=== PATIENT | female | born 1945 | race Caucasian/White ===

== ENCOUNTER 2022-03-27 09:22 | Outpatient (REF) | payer MEDICARE, OTHER, SELFPAY | END 2022-03-27 09:23 | disposition home or self-care (01) | LOC: HO.LNP 09:22 | PROVIDERS: Visit Provider Surgery | DX: R21 Rash and other nonspecific skin eruption (principal); R78.6 Finding of steroid agent in blood | CPT/HCPCS: 11104; 88305; 99202 ==

== ENCOUNTER → 2022-04-04 14:16 | Outpatient (BNVA) | payer MEDICARE, OTHER, SELFPAY | PROVIDERS: PCP Internal Medicine; Visit Provider Student in an Organized Health Care Education/Training Program | DX: M31.0 Hypersensitivity angiitis (principal) | CPT/HCPCS: 99202 ==

== ENCOUNTER 2022-04-05 05:59 | Outpatient (REF) | payer MEDICARE, OTHER, SELFPAY ==
[2022-04-05 06:45] LABS: MANUAL DIFF FLAG NO
[2022-04-05 07:32] LABS: Basophils Percent Auto 0.3 % (0-2); Eosinophils Percent Auto 0.2 % (0-4); Hematocrit 40.6 % (37.0-47.0); Hemoglobin 12.3 g/dl (12.0-16.0); Imm Gran Abs Auto 0.04 X10*3/uL (0.00-0.03); Imm Gran Pct Auto 0.4 % (0.0-0.4); Lymphocytes Absolute Auto 2.8 X10*3/uL (1.2-4.9); Lymphocytes Percent Auto 29.7 % (20-40); Mean Corpuscular HGB Conc 30.3 g/dl (31.0-35.0); Mean Corpuscular Hemoglobin 26.7 pg (27.0-33.0); Mean Corpuscular Volume 88.3 fL (80.0-98.0); Mean Platelet Volume 10.7 fL (9.4-12.3); Monocytes Absolute Auto 1.1 X10*3/uL (0.1-1.2); Neutrophils Absolute Auto 5.3 x10*3/uL (2.0-8.3); Neutrophils Percent Auto 57.4 % (45-73); Platelet Count 311 X10*3/uL (160-400); Red Cell Distribution Width 15.3 % (11.0-16.0); White Blood Count 9.3 X10*3/uL (4.8-10.8)
[2022-04-05 07:39] LABS: Estimated Average Glucose 114 mg/dL; Hemoglobin A1c % 5.6 %
[2022-04-05 08:08] LABS: Alanine Aminotransferase 18 U/L (0-31); Alkaline Phosphatase 121 U/L (39-117); Anion Gap 16 (12-20); Aspartate Amino Transferase 27 U/L (5-31); Bilirubin Total 0.3 mg/dL (0.0-1.0); Blood Urea Nitrogen 31 mg/dL (9-16); Calcium 10.2 mg/dL (8.4-10.2); Carbon Dioxide 22 mmol/L (22-29); Chloride 107 mmol/L (96-108); Estimated Glomerular Filt Rate > 60; Glucose Random 87 mg/dL (60-115); Potassium 4.5 mmol/L (3.3-5.1); Sodium 140 mmol/L (135-145); Total Protein 6.9 g/dL (6.5-8.0)
[2022-04-05 08:19] LABS: Erythrocyte Sedimentation Rate 23 MM/HR (0-20)
[2022-04-05 08:59] LABS: Rheumatoid Factor < 15.0 IU/mL (<15.0); Uric Acid 5.2 mg/dL (2.4-5.7)
[2022-04-06 14:26] LABS: Complement C3 113 mg/dL (83-193)
[2022-04-07 09:12] LABS: Thyroglobulin Antibodies 3 IU/mL (< or = 1); Thyroid Peroxidase Antibodies 302 IU/mL (<9)
[2022-04-09 11:37] LABS: Prot Elec - Albumin 3.7 g/dL (3.8-4.8); Prot Elec - Alpha1 0.4 g/dL (0.2-0.3); Prot Elec - Alpha2 0.9 g/dL (0.5-0.9); Prot Elec - Beta 1 0.5 g/dL (0.4-0.6); Prot Elec - Beta 2 0.4 g/dL (0.2-0.5); Prot Elec - Gamma 0.8 g/dL (0.8-1.7); Prot Elec - Total Protein 6.6 g/dL (6.1-8.1)
[2022-04-09 12:42] LABS: Cardiolipin IgG Ab <2.0 GPL-U/mL; Cardiolipin IgM Ab <2.0 MPL-U/mL
[2022-04-09 13:12] LABS: IgA 189 mg/dL (70-320); IgG 901 mg/dL (600-1540); IgM 121 mg/dL (50-300)
[2022-04-09 15:47] LABS: Cyclic Citrullinated Peptide <16 UNITS
[2022-04-10 06:53] LABS: Anti DNA DS Antibody <1 IU/mL; Anti-Centromere B Antibodies <1.0 NEG AI (<1.0 NEG); Antibody to SS-A Antigen <1.0 NEG AI (<1.0 NEG); Antibody to SS-B Antigen <1.0 NEG AI (<1.0 NEG); Myeloperoxidase Antibody <1.0 AI; Proteinase 3 PR3 Antibodies <1.0 AI; SM/Ribonucleoprotein Ab <1.0 NEG AI (<1.0 NEG); Scleroderma 70 Antibody <1.0 NEG AI (<1.0 NEG); Smith Protein <1.0 NEG AI (<1.0 NEG)
[2022-04-10 16:06] LABS: Angiotensin Converting Enzyme 24.1 U/L (9-67)
[2022-04-10 22:47] LABS: Hexagonal Phase Neutralization Negative (Negative); PTT (LAC) Screen 45 sec (<=40)
[2022-04-11 03:57] LABS: Beta-2 Glycoprotein IgA <2.0 U/mL (<20.0); Beta-2 Glycoprotein IgG <2.0 U/mL (<20.0); Beta-2 Glycoprotein IgM <2.0 U/mL (<20.0)
[2022-04-11 13:17] LABS: Anti Nuclear Antibody Pattern Nuclear, Homogeneous; Anti Nuclear Antibody Screen POSITIVE (NEGATIVE)
[2022-04-12 17:06] LABS: Cryoglobulin, Qual NONE DETECTED ((NDT))
== END 2022-04-05 06:00 | disposition home or self-care (01) ==
LOC: HO.LAB 05:59
PROVIDERS: PCP Internal Medicine; Visit Provider Student in an Organized Health Care Education/Training Program
DX: I77.6 Arteritis, unspecified (principal); R76.8 Other specified abnormal immunological findings in serum; E66.9 Obesity, unspecified; E03.9 Hypothyroidism, unspecified; E88.81 Metabolic syndrome and other insulin resistance
CPT/HCPCS: 36415; 80053; 82164; 82550; 82595; 82784; 83036; 84165; 84443; 84550; 85025; 85597; 85613; 85652; 85730; 86021; 86038; 86039; 86140; 86146; 86147; 86160; 86200; 86225; 86235; 86334; 86376; 86431; 86800

== ENCOUNTER 2022-04-06 07:23 | Outpatient (REF) | payer MEDICARE, OTHER, SELFPAY ==
[2022-04-06 07:40] LABS: Appearance Urine Clear; Color Urine Yellow; Glucose Urine UA Negative (Negative); Leukocyte Esterase Urine Small (1+) (Negative); Nitrite Urine Negative (Negative); Specific Gravity - Urine 1.015 (1.005-1.025); UMIC TRIGGER UA YES; Urine Blood Negative (Negative); Urine Ketones Negative (Negative); Urine Protein Negative (Neg-Trace)
[2022-04-06 08:00] LABS: Bacteria Urine None Seen (None Seen); Hyaline Casts Urine 0-2 /LPF (0-2); RBC Urine 0-2 /HPF (0-2); Squamous Epithelial Cell Urine 0-2 /HPF (0-2); WBC Urine 0-5 /HPF (0-5)
[2022-04-06 08:10] LABS: Creatinine Urine 32.37 mg/dL; Total Protein Urine Random < 7 mg/dL (<12)
== END 2022-04-06 07:24 | disposition home or self-care (01) ==
LOC: HO.LNP 07:23
PROVIDERS: Visit Provider Student in an Organized Health Care Education/Training Program
DX: I77.6 Arteritis, unspecified (principal)
CPT/HCPCS: 81001; 84156

== ENCOUNTER → 2022-04-16 10:02 | Outpatient (BNVA) | payer MEDICARE, OTHER, SELFPAY | PROVIDERS: PCP Internal Medicine; Visit Provider Internal Medicine | DX: M54.16 Radiculopathy, lumbar region (principal) | CPT/HCPCS: 99202 ==

== ENCOUNTER 2022-04-19 14:39 | Outpatient (REF) | payer MEDICARE, OTHER, SELFPAY ==
--- NOTE | ~2022-04-19 | US_ITS ---
EXAMINATION: US VENOUS ULTRASOUND WITH DOPPLER LOWER EXTREMITY, LEFT CLINICAL INFORMATION: Left lower extremity pain COMPARISON: None TECHNIQUE: Ultrasound of the deep veins is performed from the hip to the calf with compression sonography and color and pulse Doppler assessment. Spectral analysis with color-flow imaging is performed. FINDINGS: There is normal venous compression and respiratory variation and augmented flow. The visualized common femoral vein, superficial femoral vein, profunda femoral vein, popliteal vein, and the trifurcation region shows no evidence of deep venous thrombosis. There is no significant popliteal fossa cyst. If the patient's symptoms persist, followup ultrasound in 5 days 7 days might be of value to exclude proximal propagation from a non-visualized calf vein. US/US venous duplex LE LT IMPRESSION: No DVT demonstrated in the left lower extremity.
== END 2022-04-19 14:40 | disposition home or self-care (01) ==
LOC: HO.US 14:39
PROVIDERS: PCP Internal Medicine; Visit Provider Surgery
DX: L03.116 Cellulitis of left lower limb (principal); I77.6 Arteritis, unspecified; M79.662 Pain in left lower leg; Z79.899 Other long term (current) drug therapy; Z79.01 Long term (current) use of anticoagulants
CPT/HCPCS: 93971; 99212

== ENCOUNTER 2022-04-25 07:59 | Outpatient (RCR) | payer MEDICARE, OTHER, SELFPAY | END 2022-06-19 11:58 | disposition home or self-care (01) | LOC: HO.WCC 07:59 | PROVIDERS: PCP Internal Medicine; Visit Provider Surgery | DX: Z09 Encounter for follow-up examination after completed treatment for conditions other than malignant neoplasm (principal); L95.8 Other vasculitis limited to the skin; I48.91 Unspecified atrial fibrillation; I10 Essential (primary) hypertension; Z87.2 Personal history of diseases of the skin and subcutaneous tissue | CPT/HCPCS: 11042; 97597; 99212; 99214 ==

== ENCOUNTER → 2022-04-26 07:28 | Outpatient (BNVA) | payer MEDICARE, OTHER, SELFPAY | PROVIDERS: PCP Internal Medicine; Visit Provider Student in an Organized Health Care Education/Training Program | DX: M31.0 Hypersensitivity angiitis (principal) | CPT/HCPCS: 99212 ==

== ENCOUNTER 2022-05-16 06:57 | Outpatient (REF) | payer MEDICARE, OTHER, SELFPAY ==
[2022-05-16 08:32] LABS: Thyroid Stimulating Hormone 6.71 uIU/mL (0.32-4.0)
== END 2022-05-16 06:58 | disposition home or self-care (01) ==
LOC: HO.LAB 06:57
PROVIDERS: PCP Internal Medicine; Visit Provider Internal Medicine
DX: E03.9 Hypothyroidism, unspecified (principal)
CPT/HCPCS: 36415; 84443

== ENCOUNTER → 2022-06-07 07:29 | Outpatient (BNVA) | payer MEDICARE, OTHER, SELFPAY | PROVIDERS: PCP Internal Medicine; Visit Provider Student in an Organized Health Care Education/Training Program | DX: M31.0 Hypersensitivity angiitis (principal) | CPT/HCPCS: 99212 ==

== ENCOUNTER 2022-06-13 06:12 | Outpatient (REF) | payer MEDICARE, OTHER, SELFPAY ==
--- NOTE | ~2022-06-13 | FL_ITS ---
EXAMINATION: XR FLUOROSCOPY WITH IMAGES CLINICAL INFORMATION: Radiculopathy lumbar region. COMPARISON: None. TECHNIQUE: Fluoroscopy Supervised By: Pau Ponce Fluoroscopy Time: 0.1 minutes. Cumulative Dose: 10.5 mGy. DAP: 1.36 Gycm2. Images: 2. FINDINGS: Needle is seen about the posterior aspect of the L5-S1 disc space with limited visibility. FL/FL guidance in treatment room IMPRESSION: Intraoperative fluoroscopy for pain management procedure.
== END 2022-06-13 06:13 | disposition home or self-care (01) ==
LOC: CF 06:12
PROVIDERS: Visit Provider Internal Medicine
DX: M54.16 Radiculopathy, lumbar region (principal)
CPT/HCPCS: 62323; J1040

== ENCOUNTER 2022-08-20 05:48 | Emergency (ER) | payer MEDICARE, OTHER, SELFPAY ==
--- NOTE | ~2022-08-20 | XR_ITS ---
EXAMINATION: XR CERVICAL SPINE CLINICAL INFORMATION: Severe neck spasms COMPARISON: None TECHNIQUE: 4 views of the cervical spine were obtained. FINDINGS: No acute fracture or traumatic malalignment. There is 3 mm anterolisthesis of C3 over C4 and C4 over C5 related to hypertrophic facet arthropathy which is present throughout the cervical spine. Mild cervical kyphosis centered at C5. Near-complete obliteration of the disc spaces at C5-C6 and C6-C7. Paraspinal soft tissues unremarkable. XR/XR cervical spine 3V IMPRESSION: * No acute fracture or traumatic malalignment. * Cervical spondylosis as described.
[2022-08-20 05:55] VITALS: BP 156/68; PULSE 86; RESP 16; TEMP 36.8; O2SAT 99; BMI 37.0
--- NOTE | 2022-08-20 07:07 | ED.NECK ---
HPI - Neck Pain/Injury General Chief Complaint: Neck Pain/Injury Stated Complaint: Neck pain/No Inj Time Seen by Provider: 08/20/22 07:06 Source: patient Mode of arrival: ambulatory Limitations: no limitations History of Present Illness HPI Narrative: Patient had her hair done but when she put her head back she had severe pain and spasm complaint: neck pain Onset (ago): day(s) (3 days) [facility] Severity: severe Quality: sharp Related Data Home Medications Medication Instructions Recorded Confirmed atorvastatin 20 mg tablet 20 mg PO DAILY 03/27/22 07/16/22 calcium carbonate 600 mg-vitamin cap PO 03/27/22 07/16/22 D3 12.5 mcg (500 unit) capsule clotrimazole 1 % topical cream 1 appl topical BID 03/27/22 07/16/22 cyclosporine 0.05 % eye drops 1 drp ophthalmic (eye) Q12H 03/27/22 07/16/22 fexofenadine 180 mg tablet 180 mg PO DAILY 03/27/22 07/16/22 furosemide 20 mg tablet 20 mg PO QAM 03/27/22 07/16/22 latanoprost 0.005 % eye drops 1 drp ophthalmic (eye) DAILY 03/27/22 07/16/22 metoprolol succinate 25 mg 25 mg PO DAILY 03/27/22 07/16/22 tablet,extended release 24 hr nystatin 100,000 unit/gram topical 1 appl topical BID 03/27/22 07/16/22 powder omeprazole 20 mg capsule,delayed 20 mg PO DAILY 03/27/22 07/16/22 release potassium chloride 10 mEq 10 meq PO DAILY 03/27/22 07/16/22 capsule,extended release topiramate 25 mg tablet 25 mg PO DAILY 03/27/22 07/16/22 warfarin 1 mg tablet 3 mg PO DAILY 03/27/22 07/16/22 acetaminophen 500 mg capsule 1,000 mg PO BID 04/04/22 07/16/22 Previous Rx's Medication Instructions Recorded levothyroxine 112 mcg tablet 112 mcg PO DAILY 90 days #90 tabs 05/17/22 cyclobenzaprine 10 mg tablet 10 mg PO BID PRN muscle spasm #30 08/08/22 tabs naproxen 500 mg tablet (Naprosyn) 500 mg PO BID #8 tabs 08/20/22 Allergies Allergy/AdvReac Type Severity Reaction Status Date / Time fentanyl Allergy Severe Shortness Verified 07/16/22 13:19 of Breath lisinopril Allergy Severe Nausea, Verified 07/16/22 13:19 dizziness propafenone Allergy Severe Unknown Verified 07/16/22 13:19 clarithromycin [From Biaxin] Allergy Mild RASH/ITCH Verified 07/16/22 13:19 erythromycin base Allergy Mild RASH/ITCH Verified 07/16/22 13:19 [Erythromycin Base] hydrocodone [From Vicodin] Allergy Mild RASH/ITCH Verified 07/16/22 13:19 levofloxacin [From Levaquin] Allergy Mild DELIRIUM Verified 07/16/22 13:19 oxycodone [From Percocet] Allergy Mild RASH/ITCH Verified 07/16/22 13:19 sulfamethoxazole Allergy Mild RASH/ITCH Verified 07/16/22 13:19 [From Bactrim] trimethoprim [From Bactrim] Allergy Mild RASH/ITCH Verified 07/16/22 13:19 duloxetine [From CYMBALTA] Allergy Unknown MEMORY LOSS Verified 07/16/22 13:19 gabapentin [From NEURONTIN] Allergy Unknown N/V Verified 07/16/22 13:19 tramadol [TRAMADOL] Allergy Unknown RASH Verified 07/16/22 13:19 lyrica Allergy Unknown nausea, Uncoded 07/16/22 13:19 vomiting Review of Systems Review of Systems: Yes all other systems are reviewed and are negative Musculoskeletal: Musculoskeletal: Reports other (neck spasms) Neurologic: Denies Sensory deficit (Neuro) PMFSH Past Medical History Medical History Atrial fibrillation Breast cancer Dyslipidemia Hypothyroidism Rosacea Vasculitis Surgical History History of cardiac radiofrequency ablation (RFA) History of lumpectomy of right breast History of surgery on lower extremity (05/15/21) Family History Family History Sister Colon cancer Sister Colon cancer Maternal Grandmother Lung cancer Social History Social History Household Members: Spouse Housing: House Alcohol intake: current Alcohol intake frequency: holidays/special occasions only Alcohol type: other Patient Tobacco Use Status: Never used Tobacco Smoked in Last 30 Days: No e-Cigarette/Vaping Use: Never Used Second Hand Smoke Exposure: No Use of substances other than those prescribed or required for medical reasons: No Advance Directives: No Advance Directives Information Provided: Yes service: No Current occupational status: retired 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 Cognitive needs: Yes Hearing needs: No Vision needs: Yes Physical Exam Vital Signs: Vital Signs: Last Vital Signs Temp 98.2 F 08/20/22 05:55 Pulse 86 08/20/22 05:55 Resp 16 08/20/22 05:55 BP 156/68 H 08/20/22 05:55 Pulse Ox 99 08/20/22 05:55 O2 Del Method 08/20/22 05:55 BMI result Body Mass Index 37.0 Const: Other: Patient in severe pain Nutritional Appearance: obese Orientation/consciousness: oriented to person and patient oriented x3 Limitations: no limitations HEENT: Head: Yes normal to inspection Ears: external ears normal General nose exam: Normal external nose present Mouth: Normal oral and palatal mucosa present and oropharynx normal Throat: Yes posterior oropharynx normal Eyes: General: appearance normal, both eyes and all related structures Neck: Other: spasms crying in pain Chest: Chest palpation & inspection: normal inspection of the chest Resp: Auscultation: clear to auscultation bilaterally Cardio: Jugular venous distension: no JVD Rate: regular rate Rhythm: regular rhythm Heart sounds: S1 normal heart sound present and S2 normal heart sound present GI: Inspection: Yes normal to inspection Palpation (GI): Soft to palpation, nontender and No hepatosplenomegaly present Auscultation: normal bowel sounds : General: Yes no CVA tenderness Back/Spine/Pelvis: Back: no CVA tenderness Skin: General skin exam: no rashes or lesions noted Neuro: General: oriented to person and patient oriented x3 Cranial nerves: Yes CN's II-XII intact bilaterally Motor exam (neuro): 5/5 motor strength present throughout Sensory Exam: No Sensory deficit (Neuro) Extrem: General: Yes normal to inspection Psych: Appearance: grossly normal Course Reevaluation(s) Reevaluation #1: patient improved will dc on high dose NSAIDS Time: 10:10 Reevaluation #2: Will place on 4 days of NSAIDS as patient is on coumadin Time: 10:13 Medications Administered Discontinued Medications Generic Name Dose Route Start Last Admin Trade Name Alban PRN Reason Stop Dose Admin Cyclobenzaprine HCl 10 mg 08/20/22 07:13 08/20/22 07:54 Cyclobenzaprine Hcl 10 Mg Tablet PO 08/20/22 07:14 10 mg ONCE ONE Administration Ketorolac Tromethamine 60 mg 08/20/22 07:13 08/20/22 07:54 Ketorolac Tromethamine 60 Mg/2 Ml Vial IM 08/20/22 07:14 60 mg ONCE ONE Administration Medical Decision Making Differential Diagnosis Differential Diagnoses: The differential diagnosis associated with the presentation includes (torticollis, cervical spasm, degenerative joint disease) Independent Interpretation I performed an independent interpretation of an: Plain X-Ray (cervical spine with severe djd) Independent Historian Clinical information obtained from an independent historian. History obtained from or confirmed by: Other (daughter) Chronic Conditions Patient?s care impacted by: Other (arthritis) Discharge Plan Discharge Clinical Impression: Cervical spine arthritis, Spasm of cervical paraspinous muscle Patient Disposition: Home, Self-Care Instructions: Osteoarthritis (ED), Muscle Spasm (ED), Chronic Neck Pain (DC) Prescriptions: New naproxen [Naprosyn] 500 mg tablet 500 mg PO BID Qty: 8 0RF No Action levothyroxine 112 mcg tablet 112 mcg PO DAILY 90 Days Qty: 90 1RF cyclobenzaprine 10 mg tablet 10 mg PO BID PRN (Reason: muscle spasm) Qty: 30 0RF fexofenadine 180 mg tablet 180 mg PO DAILY furosemide 20 mg tablet 20 mg PO QAM latanoprost 0.005 % drops 1 drp ophthalmic (eye) DAILY metoprolol succinate 25 mg tablet extended release 24 hr 25 mg PO DAILY nystatin 100,000 unit/gram powder 1 appl topical BID atorvastatin 20 mg tablet 20 mg PO DAILY calcium carbonate-vitamin D3 600 mg-12.5 mcg (500 unit) capsule PO clotrimazole 1 % cream 1 appl topical BID cyclosporine 0.05 % drops 1 drp ophthalmic (eye) Q12H omeprazole 20 mg capsule,delayed release(DR/EC) 20 mg PO DAILY potassium chloride 10 mEq capsule, extended release 10 meq PO DAILY topiramate 25 mg tablet 25 mg PO DAILY warfarin 1 mg tablet 3 mg PO DAILY acetaminophen 500 mg capsule 1,000 mg PO BID Referrals: Jeancarlos Angelina,Sandra, MD [Primary Care Provider] - 5 days
[2022-08-20] MEDS: Cyclobenzaprine HCl 10 MG TABLET PO (07:54)
[2022-08-20] MEDS: Ketorolac Tromethamine 60 MG/2 ML VIAL IM (07:54)
[2022-08-20 10:19] VITALS: BP 152/75; PULSE 85; RESP 16; O2SAT 98
== END 2022-08-20 10:23 | disposition home or self-care (01) ==
PROVIDERS: Emergency Provider Emergency Medicine; PCP Internal Medicine
DX: M54.2 Cervicalgia (principal); M62.838 Other muscle spasm
CPT/HCPCS: 72040; 96372; 99284; J1885

== ENCOUNTER 2022-11-06 09:21 | Outpatient (REF) | payer MEDICARE, OTHER, SELFPAY ==
--- NOTE | ~2022-11-06 | MM_ITS ---
EXAMINATION: BONE DENSITOMETRY CLINICAL INDICATION: Unspecified menopausal and perimenopausal disorder. COMPARISON: None (current study represents initial baseline exam). TECHNIQUE: Using a [email or web address] DXA System (software version: 13.1) manufactured by [employer], dual-energy x-ray absorptiometry was performed of the lumbar spine and right hip. The images are of good technical quality. Summary results are attached. FINDINGS: AP SPINE L1-L4: BMD 1.034 g/cm2, Z-score -0.4, T-score -1.2, osteopenia. RIGHT FEMUR, NECK: BMD 0.746 g/cm2, Z-score -0.7, T-score -2.1, osteopenia. RIGHT FEMUR, TOTAL: BMD 0.795 g/cm2, Z-score -0.5, T-score -1.7, osteopenia. IDENTIFIED RISK FACTORS: Height loss, hysterectomy, bilateral oophorectomy. Early menopause, secondary osteoporosis, glucocorticoids (chronic). HISTORY OF FRACTURE: None listed. MEDICATIONS: Calcium supplements or multivitamin, vitamin D. MM/XR DEXA axial skeleton IMPRESSION: 1. DIAGNOSIS: Osteopenia based on the lowest T-score value of -2.1 in the femoral neck applying World Health Organization criteria. 2. 10-YEAR FRACTURE RISK PREDICTION, FRAX: Major osteoporotic fracture (clinical spine, forearm, hip or shoulder) 21.2%. Hip fracture 6.7%. 3. Treatment Recommendations: NOF guidelines recommend consideration for treatment in postmenopausal women and men age 50 and older presenting with the following: -A hip or vertebral (clinical or morphometric) fracture. -T-score less than or equal to -2.5 at the femoral neck or spine after appropriate evaluation to exclude secondary causes. -Low bone mass at the hip or spine and a 10-year fracture probability by FRAX of greater than or equal to 3% for hip fracture or greater than or equal to 20% for major osteoporotic fracture based on the [place] adapted WHO algorithm. 4. Other Recommendations: All treatment decisions require clinical judgment and consideration of individual patient factors, including patient preferences, comorbidities, previous drug use, risk factors not captured in the FRAX model (e.g. frailty, falls, vitamin D deficiency, increased bone turnover, interval significant decline in bone density) and possible under or overestimation of fracture risk by FRAX. Additional medical evaluation for secondary cause of low bone mineral density may be appropriate. FUTURE SCAN RECOMMENDATION: People with diagnosed cases of osteoporosis or at high risk for fracture should have regular bone mineral density tests. For patients eligible for Medicare, routine testing is allowed once every 2 years. The testing frequency can be increased to one year for patients who have rapidly progressing disease, those who are receiving or discontinuing medical therapy to restore bone mass, or have additional risk factors.
--- NOTE | ~2022-11-06 | MM_ITS ---
EXAMINATION: MM SCREENING DIGITAL BREAST TOMOSYNTHESIS, BILATERAL CLINICAL INFORMATION: Due for yearly. Prior right lumpectomy for DCIS, 2008. COMPARISON: Outside mammography: 03/08/2022, 03/01/2021, 02/17/2020, 01/12/2019 ([facility]). TECHNIQUE: Digital breast tomosynthesis is performed in both the craniocaudal and mediolateral oblique views along with computer-aided detection (CAD). Synthesized 2D images are generated from the tomosynthesis. Additional right CC and bilateral MLO views are provided. FINDINGS: There are scattered areas of fibroglandular density (ACR BI-RADS breast composition Category b). There are post therapy changes right breast with stable mild reduced breast size and scarring similar to prior outside studies. Neither breast shows interval mass or architectural abnormality or abnormal calcifications. Biopsy clip marker anterior right breast is similar to prior exams. The axilla are unremarkable. No significant changes. MM/MM tomosynthesis screening BI IMPRESSION: -No mammographic evidence of malignancy. -Post therapy changes right breast. ASSESSMENT: BI-RADS 2: Benign RECOMMENDATION: Routine annual mammography screening. This patient's information was entered into a reminder system with a target due date for their next mammogram.
== END 2022-11-06 09:22 | disposition home or self-care (01) ==
LOC: HO.MAMMO 09:21
PROVIDERS: PCP Internal Medicine; Visit Provider Internal Medicine
DX: Z12.31 Encounter for screening mammogram for malignant neoplasm of breast (principal); Z13.820 Encounter for screening for osteoporosis; N95.9 Unspecified menopausal and perimenopausal disorder
CPT/HCPCS: 77063; 77067; 77080

== ENCOUNTER 2023-05-28 14:08 | Outpatient (AMB) | payer MEDICARE, OTHER, SELFPAY ==
--- NOTE | 2023-05-28 14:13 | MHC.PC.OV ---
Vital Signs 05/28/23 14:14 Height 5 ft 4 in Weight 213 lb BMI 36.6 BP 120/78 Blood Pressure Location Lt brachial Position Sitting Pulse 101 H Pulse Source Pulse Oximeter Pulse Oximetry (%) 97 Oxygen Delivery Method Room Air Intake Visit Reasons: multiple colds in one month Intake Note: Patient here c/o multiple colds Perinatal Social Worker Required: No Accompanied by: spouse, daughter Allergies fentanyl Allergy (Severe, Verified 05/28/23 14:26) Shortness of Breath lisinopril Allergy (Severe, Verified 05/28/23 14:26) Nausea, dizziness propafenone Allergy (Severe, Verified 05/28/23 14:26) Unknown clarithromycin [From Biaxin] Allergy (Mild, Verified 05/28/23 14:26) RASH/ITCH erythromycin base [Erythromycin Base] Allergy (Mild, Verified 05/28/23 14:26) RASH/ITCH hydrocodone [From Vicodin] Allergy (Mild, Verified 05/28/23 14:26) RASH/ITCH levofloxacin [From Levaquin] Allergy (Mild, Verified 05/28/23 14:26) DELIRIUM oxycodone [From Percocet] Allergy (Mild, Verified 05/28/23 14:26) RASH/ITCH sulfamethoxazole [From Bactrim] Allergy (Mild, Verified 05/28/23 14:26) RASH/ITCH trimethoprim [From Bactrim] Allergy (Mild, Verified 05/28/23 14:26) RASH/ITCH duloxetine [From CYMBALTA] Allergy (Unknown, Verified 05/28/23 14:26) MEMORY LOSS gabapentin [From NEURONTIN] Allergy (Unknown, Verified 05/28/23 14:26) N/V tramadol [TRAMADOL] Allergy (Unknown, Verified 05/28/23 14:26) RASH lyrica Allergy (Unknown, Uncoded 05/28/23 14:26) nausea, vomiting Medication List - Last Reconciled 05/28/23 by Codie Alfaro MD acetaminophen 1,000 mg PO BID atorvastatin 20 mg PO DAILY 90 days calcium carbonate-vitamin D3 600 mg-12.5 mcg (500 unit) 2 caps PO DAILY 90 days clotrimazole 1% 1 appl topical BID clotrimazole-betamethasone 1-0.05 % 1 appl topical BID 2 weeks cyclobenzaprine 10 mg PO BID PRN 7 days cyclosporine 0.05% 1 drp ophthalmic (eye) Q12H fexofenadine 180 mg PO DAILY furosemide 20 mg PO QAM 90 days latanoprost 0.005% 1 drp ophthalmic (eye) DAILY 30 days levothyroxine 112 mcg PO DAILY 90 days metoprolol succinate ER 25 mg PO DAILY 90 days metronidazole 0.75% 1 appl topical DAILY 30 days nystatin 1 appl topical DAILY 30 days nystatin 1 appl topical BID PRN 30 days omeprazole 20 mg PO DAILY potassium chloride ER 10 mEq PO DAILY topiramate 25 mg PO DAILY warfarin 1 mg PO DAILY 90 days warfarin 2 mg PO DAILY 90 days Tobacco use date assessed: 07/16/22 Fall risk assessment: No Falls in past year Last assessed Fall Risk: 05/28/23 Dental Screening Dental Screen Date: 05/28/23 Did you have a dental visit in the last 12 months?: Yes Did you have a dental problem in the last 6 months where you did not have access to dental care?: No Was dental information given to patient?: Patient has dentist HPI HPI Comments History of Present Illness Details This is a 77-year-old female with atrial fibrillation, hypothyroidism and dyslipidemia that comes accompanied by and daughter complaining of chest congestion and productive cough that has been present for about a week. No fever. No nausea or vomiting. No sore throat. Some nasal congestion. Tested negative for COVID-19 at home. Will be treated with Z-Truong. Also will be tested for RSV not/flu/COVID-19. On Coumadin for atrial fibrillation and denies any active bleeding. TSH will be order to check her thyroid. Lipid panel also ordered. Patient compliant with medications. COUNT INCLUDES THE [facility] Medical History (Updated 05/28/23 @ 15:32 by Codie Alfaro MD) Rosacea Breast cancer Vasculitis Hypothyroidism Dyslipidemia Atrial fibrillation Surgical History History of cardiac radiofrequency ablation (RFA) History of lumpectomy of right breast History of surgery on lower extremity (05/15/21) Family History Sister Colon cancer Sister Colon cancer Maternal Grandmother Lung cancer Social History Household Members: Spouse Housing: House Alcohol intake: current Alcohol intake frequency: holidays/special occasions only Alcohol type: other Patient Tobacco Use Status: Never used Tobacco e-Cigarette/Vaping Use: Never Used Second Hand Smoke Exposure: No service: No Current occupational status: retired 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 Delvin Garnica, Mirta Payan, Yobany Burk and colleagues, with an educational melissa from [employer]. Review of Systems Const All systems reviewed & are unremarkable except as noted in HPI and below Eyes Reports no additional complaints, Denies change in vision and Denies other visual disturbances Card Denies chest pain at rest, Denies chest pain with activity, Denies edema, Denies irregular heart rhythm, Denies claudication, Denies dyspnea, Denies dyspnea on exertion, Denies orthopnea, Denies paroxysmal nocturnal dyspnea and Denies slow heart rate Resp Reports chest congestion, Reports cough, Denies dyspnea and Denies dyspnea on exertion GI Denies abdominal pain, Denies change in bowel habits, Denies excessive flatus, Denies nausea and Denies vomiting Denies urinary incontinence, Denies urinary hesitancy and Denies urinary urgency Musc Denies abnormal gait, Denies atrophy, Denies deformity and Denies limited range of motion Skin/Breast Denies bleeding lesions, Denies changing lesions and Denies rash Neuro Denies abnormal gait and Denies lack of coordination Physical exam (Primary Care) Vital Signs: Last Vital Signs Pulse 101 H 05/28/23 14:14 BP 120/78 05/28/23 14:14 Pulse Ox 97 05/28/23 14:14 Oxygen Delivery Method Room Air 05/28/23 14:14 BMI result Body Mass Index 36.6 Tobacco/Smoking Status: Tobacco use Status Tobacco use date assessed 07/16/22 05/28/23 14:18 Patient Tobacco Use Status Never used Tobacco 05/28/23 14:18 e-Cigarette/Vaping Use Never Used 05/28/23 14:18 Thrive Assessment: Date of Thrive Assessment Date Thrive assessed 07/16/22 05/28/23 14:18 Eyes General: appearance normal, both eyes and all related structures Eyelids: Yes eyelids normal Conjunctivae: conjunctivae normal Neck Neck: Yes normal visual inspection and Yes supple Resp Effort & Inspection: normal respiratory effort Auscultation: rhonchi Cardio Jugular venous distension: no JVD Rate: regular rate Rhythm: regular rhythm Heart sounds: S1 normal heart sound present and S2 normal heart sound present Extrem General: Yes full ROM Assessment and Plan Assessment & Plan (1) Upper respiratory infection: Code(s): J06.9 - Acute upper respiratory infection, unspecified Qualifiers: URI type: unspecified URI Qualified Code(s): J06.9 - Acute upper respiratory infection, unspecified Plan: Start Zpak. (2) Atrial fibrillation: Code(s): I48.91 - Unspecified atrial fibrillation Plan: Continue Coumadin. Recheck INR in a week. (3) Hypothyroidism: Code(s): E03.9 - Hypothyroidism, unspecified Plan: Continue levothyroxine. (4) Dyslipidemia: Code(s): E78.5 - Hyperlipidemia, unspecified Plan: Continue statins. Repeat lipid panel. Orders: Orders Comprehensive [place]. Panel Fast Today I48.91 - Unspecified atrial fibrillation Complete Blood Count Auto Diff Today K21.9 - Gastro-esophageal reflux disease without esophagitis Thyroid Stimulating Hormone Today E03.9 - Hypothyroidism, unspecified SARS-CoV2/FLU/RSV Today R09.89 - Other specified symptoms and signs involving the circulatory and respiratory systems Lipid Panel Today E78.5 - Hyperlipidemia, unspecified Medications: New azithromycin (Zithromax) Two tabs a 1st day then 1 tab for the next 4 days 250 mg PO DAILY 5 days 6 tabs 0RF Coding Level of Care Code Est Pt Level 4 (64924) Diagnoses Upper respiratory tract infection, unspecified type J06.9 URI type: unspecified URI Atrial fibrillation I48.91 Hypothyroidism E03.9 Dyslipidemia E78.5 Time Spent (min) 24
[2023-05-28 14:14] VITALS: BP 120/78; PULSE 101; O2SAT 97; BMI 36.6
== END 2023-05-28 14:39 | disposition home or self-care (01) ==
PROVIDERS: PCP Internal Medicine; Visit Provider Internal Medicine
DX: J06.9 Acute upper respiratory infection, unspecified (principal); I48.91 Unspecified atrial fibrillation; E03.9 Hypothyroidism, unspecified; E78.5 Hyperlipidemia, unspecified
CPT/HCPCS: 99214

== ENCOUNTER 2023-09-24 14:50 | Outpatient (AMB) | payer MEDICARE, OTHER, SELFPAY ==
--- NOTE | 2023-09-24 14:58 | A.OFFPC_ITS ---
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 Accompanied by: Self / Same As Patient Allergies fentanyl Allergy (Severe, Verified 09/24/23 15:14) Shortness of Breath lisinopril Allergy (Severe, Verified 09/24/23 15:14) Nausea, dizziness propafenone Allergy (Severe, Verified 09/24/23 15:14) Unknown clarithromycin [From Biaxin] Allergy (Mild, Verified 09/24/23 15:14) RASH/ITCH erythromycin base [Erythromycin Base] Allergy (Mild, Verified 09/24/23 15:14) RASH/ITCH hydrocodone [From Vicodin] Allergy (Mild, Verified 09/24/23 15:14) RASH/ITCH levofloxacin [From Levaquin] Allergy (Mild, Verified 09/24/23 15:14) DELIRIUM oxycodone [From Percocet] Allergy (Mild, Verified 09/24/23 15:14) RASH/ITCH sulfamethoxazole [From Bactrim] Allergy (Mild, Verified 09/24/23 15:14) RASH/ITCH trimethoprim [From Bactrim] Allergy (Mild, Verified 09/24/23 15:14) RASH/ITCH duloxetine [From CYMBALTA] Allergy (Unknown, Verified 09/24/23 15:14) MEMORY LOSS gabapentin [From NEURONTIN] Allergy (Unknown, Verified 09/24/23 15:14) N/V tramadol [TRAMADOL] Allergy (Unknown, Verified 09/24/23 15:14) RASH lyrica Allergy (Unknown, Uncoded 09/24/23 15:14) nausea, vomiting Medication List - Last Reconciled 09/24/23 by Codie Alfaro MD acetaminophen 1,000 mg PO BID atorvastatin 20 mg PO DAILY 90 days calcium carbonate-vitamin D3 600 mg-12.5 mcg (500 unit) 2 caps PO DAILY 90 days cyclobenzaprine 10 mg PO BID PRN 7 days cyclosporine 0.05% 1 drp ophthalmic (eye) Q12H fexofenadine 180 mg PO DAILY furosemide 20 mg PO QAM 90 days latanoprost 0.005% 1 drp ophthalmic (eye) DAILY 30 days levothyroxine 112 mcg PO DAILY 90 days metoprolol succinate ER 25 mg PO DAILY 90 days metronidazole 0.75% 1 appl topical DAILY 30 days nystatin 1 appl topical DAILY 30 days omeprazole 20 mg PO DAILY potassium chloride ER 10 mEq PO DAILY 90 days topiramate 25 mg PO DAILY warfarin 1 mg PO DAILY 90 days warfarin 2 mg PO DAILY 90 days Tobacco use date assessed: 09/24/23 Fall risk assessment: No Falls in past year Last assessed Fall Risk: 09/24/23 Dental Screening Dental Screen Date: 09/24/23 Did you have a dental visit in the last 12 months?: No Did you have a dental problem in the last 6 months where you did not have access to dental care?: No Was dental information given to patient?: Patient has dentist HPI HPI Comments History of Present Illness Details This is a 78-year-old female with atrial fibrillation and history of breast cancer in 2009 that comes today for her physical exam. Denies any chest pain or shortness of breath. Last mammogram was about a year ago and last colonoscopy was about a year ago in which both were normal. Compliant with medications. Walks with a cane for gait stability due to chronic low back pain. [facility] Medical History (Updated 09/24/23 @ 15:54 by Codie Alfaro MD) Rosacea Breast cancer Vasculitis Hypothyroidism Dyslipidemia Atrial fibrillation Surgical History History of cardiac radiofrequency ablation (RFA) History of lumpectomy of right breast History of surgery on lower extremity (05/15/21) Family History Sister Colon cancer Sister Colon cancer Maternal Grandmother Lung cancer Social History Household Members: Spouse Housing: House Alcohol intake: current Alcohol intake frequency: holidays/special occasions only Alcohol type: other Patient Tobacco Use Status: Never used Tobacco e-Cigarette/Vaping Use: Never Used Second Hand Smoke Exposure: No service: No Current occupational status: retired 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 1. Little interest or pleasure in doing things: not at all 2. Feeling down, depressed, or hopeless: not at all 3. Trouble falling or staying asleep, or sleeping too much: not at all 4. Feeling tired or having little energy: not at all 5. Poor appetite or overeating: not at all 6. Feeling bad about yourself - or that you are a failure or have let yourself or your family down: not at all 7. Trouble concentrating on things, such as reading the newspaper or watching television: not at all 8. Moving or speaking so slowly that other people could have noticed. Or the opposite - being so fidgety or restless that you have been moving around a lot more than usual: not at all 9. Thoughts that you would be better off or of hurting yourself in some way: not at all Total score: 0 Depression Screening Interpretation: Negative Depression Screening Done: Yes 89467 - PHQ-9 Billing: Yes Source: Developed by Drs. Delvin Garnica, Mirta Payan, Yobany Burk and colleagues, with an educational melissa from [employer]. Thrive Questionnaire Date Thrive assessed: 09/24/23 I am a: Patient What is your living situation today?: I have a steady place to live Within the past 12 months, did the food you bought not last and you didn't have the money to get more?: Never true Within the past 12 months, did you worry whether your food would run out before you got money to buy more?: Never true Do you have trouble paying for medicines?: No Do you have trouble getting transportation to medical appointments?: No Do you have trouble paying your heating and electricity bill?: No Do you have trouble taking care of your child, family member or friend?: No Do you have trouble with day-to-day activities such as bathing, preparing meals, shopping, managing finances, etc.?: No Are you currently unemployed and looking for a job?: No Are you interested in more education?: No Please select the resources that you would like help with: None Currently or been in a relationship where the following occur: no concerns reported THRIVE Score: 0 AUDIT C Alcohol Use Questionnaire (AUDIT-C) 1. How often do you have a drink containing alcohol?: Monthly or less 2. How many drinks containing alcohol do you have on a typical day when you are drinking?: 1 or 2 3. How often do you have six or more drinks on one occasion?: Never Total Score: 1 Score Reviewed/Action Taken: No PUNEET-7 AMB Questionnaire PUNEET-7 Date PUNEET - 7 assessed: 09/24/23 Feeling nervous, anxious, or on edge: 0 = Not at all Not being able to stop or control worryin = Not at all Worrying too much about different things: 0 = Not at all Trouble relaxin = Not at all Being so restless that it is hard to sit still: 0 = Not at all Becoming easily annoyed or irritable: 0 = Not at all Feeling afraid as if something awful might happen: 0 = Not at all Total PUNEET-7 score (0-4 normal; 5-9 mild; 10-14 moderate; 15-21 severe): 0 Source: Developed by Drs. Delvin Garnica, Mirta Payan, Yobany Burk and colleagues, with an educational melissa from [employer]. PUNEET-7 Assessment Billing PUNEET-7 Assessment Tool: PUNEET-7 Assessment 56896 Review of Systems Const All systems reviewed & are unremarkable except as noted in HPI and below Eyes Reports no additional complaints, Denies change in vision and Denies other visual disturbances Card Denies chest pain at rest, Denies chest pain with activity, Denies edema, Denies irregular heart rhythm, Denies claudication, Denies dyspnea, Denies dyspnea on exertion, Denies orthopnea, Denies paroxysmal nocturnal dyspnea and Denies slow heart rate Resp Denies cough, Denies dyspnea and Denies dyspnea on exertion GI Denies abdominal pain, Denies change in bowel habits, Denies excessive flatus, Denies nausea and Denies vomiting Denies urinary incontinence, Denies urinary hesitancy and Denies urinary urgency Musc Denies abnormal gait, Reports back pain, Denies atrophy, Denies deformity and Denies limited range of motion Neuro Denies abnormal gait, Denies behavioral changes, Denies confusion and Denies lack of coordination Psych Denies behavioral changes and Denies confusion Endo Denies cold intolerance Physical exam (Primary Care) Vital Signs: Last Vital Signs Pulse 68 09/24/23 15:01 BP 118/72 09/24/23 15:01 Pulse Ox 97 09/24/23 15:01 Oxygen Delivery Method Room Air 09/24/23 15:01 BMI result Body Mass Index 36.9 Tobacco/Smoking Status: Tobacco use Status Tobacco use date assessed 09/24/23 09/24/23 15:08 Patient Tobacco Use Status Never used Tobacco 09/24/23 14:59 e-Cigarette/Vaping Use Never Used 09/24/23 14:59 PHQ-9: PHQ-9 Score PHQ-9: Total score 0 09/24/23 15:21 Depression Screening Interpretation: Negative Thrive Assessment: Date of Thrive Assessment Date Thrive assessed 09/24/23 09/24/23 15:08 Currently or been in a relationship where the following occur: no concerns reported Const General: No confusion Orientation/consciousness: patient oriented x3 and No confusion Limitations: ambulation with cane HENMT Head: Yes normal to inspection, Yes normocephalic and Yes atraumatic Ears: external ears normal Eyes General: appearance normal, both eyes and all related structures Eyelids: Yes eyelids normal Conjunctivae: conjunctivae normal Neck Neck: Yes normal visual inspection and Yes supple Resp Effort & Inspection: normal respiratory effort Auscultation: clear to auscultation bilaterally Cardio Jugular venous distension: no JVD Rate: regular rate Rhythm: regular rhythm Heart sounds: S1 normal heart sound present and S2 normal heart sound present GI Inspection: Yes normal to inspection Palpation (GI): Soft to palpation and nontender Auscultation: normal bowel sounds Skin General skin exam: no rashes or lesions noted Neuro General: patient oriented x3, no focal motor deficits and No confusion Extrem General: Yes full ROM Psych Appearance: grossly normal Assessment and Plan Assessment & Plan (1) Physical exam: Code(s): Z00.00 - Encounter for general adult medical examination without abnormal findings Plan: Repeat in a year. (2) Breast cancer: Comment: 2009 Code(s): C50.919 - Malignant neoplasm of unspecified site of unspecified female breast Plan: Continue follow-up with mammogram. (3) Atrial fibrillation: Code(s): I48.91 - Unspecified atrial fibrillation Qualifiers: Atrial fibrillation type: permanent Qualified Code(s): I48.21 - Permanent atrial fibrillation Plan: Continue warfarin. The goal is rate control. Orders: Orders Lipid Panel Today E78.5 - Hyperlipidemia, unspecified Vitamin D 25-OH Total Today E55.9 - Vitamin D deficiency, unspecified Comprehensive [place]. Panel Fast Today I48.91 - Unspecified atrial fibrillation Thyroid Stimulating Hormone Today E03.9 - Hypothyroidism, unspecified Medications: Changed From topiramate 25 mg PO DAILY To topiramate 25 mg PO DAILY 90 tabs 1RF 90 days Coding Level of Care Code Est Pt Prev Care >65y(71162) Diagnoses Physical exam Z00.00 Breast cancer C50.919 Permanent atrial fibrillation I48.21 Atrial fibrillation type: permanent Additional Codes PUNEET-7 Assessment Billing - PUNEET-7 Assessment Tool: PUNEET-7 Assessment [id number] ([id number]) Time Spent (min) 34
[2023-09-24 15:01] VITALS: BP 118/72; PULSE 68; O2SAT 97; BMI 36.9
== END 2023-09-24 15:28 | disposition home or self-care (01) ==
PROVIDERS: PCP Internal Medicine; Visit Provider Internal Medicine
DX: Z00.00 Encounter for general adult medical examination without abnormal findings (principal); C50.919 Malignant neoplasm of unspecified site of unspecified female breast; I48.21 Permanent atrial fibrillation
CPT/HCPCS: 99397

== ENCOUNTER 2023-11-06 14:47 | Outpatient (REF) | payer MEDICARE, OTHER, SELFPAY ==
[2023-11-06 14:59] LABS: MANUAL DIFF FLAG NO
[2023-11-06 15:43] LABS: Basophils Absolute Auto 0.1 X10*3/uL (0.0-0.2); Basophils Percent Auto 0.7 % (0-2); Eosinophils Absolute Auto 0.3 X10*3/uL (0.0-0.4); Eosinophils Percent Auto 4.3 % (0-4); Hematocrit 44.7 % (37.0-47.0); Hemoglobin 14.4 g/dl (12.0-16.0); Imm Gran Abs Auto 0.02 X10*3/uL (0.00-0.03); Imm Gran Pct Auto 0.3 % (0.0-0.4); Lymphocytes Absolute Auto 3.2 X10*3/uL (1.2-4.9); Lymphocytes Percent Auto 43.1 % (20-40); Mean Corpuscular HGB Conc 32.2 g/dl (31.0-35.0); Mean Corpuscular Hemoglobin 30.3 pg (27.0-33.0); Mean Corpuscular Volume 94.1 fL (80.0-98.0); Mean Platelet Volume 10.2 fL (9.4-12.3); Monocytes Absolute Auto 0.7 X10*3/uL (0.1-1.2); Neutrophils Absolute Auto 3.1 x10*3/uL (2.0-8.3); Neutrophils Percent Auto 41.6 % (45-73); Platelet Count 247 X10*3/uL (160-400); Red Blood Count 4.75 X10*6/uL (4.20-5.50); Red Cell Distribution Width 14.1 % (11.0-16.0); White Blood Count 7.4 X10*3/uL (4.8-10.8)
[2023-11-06 16:33] LABS: Thyroid Stimulating Hormone 5.21 uIU/mL (0.32-4.0)
== END 2023-11-06 14:48 | disposition home or self-care (01) ==
LOC: HO.LAB 14:47
PROVIDERS: PCP Internal Medicine; Visit Provider Internal Medicine
DX: E03.9 Hypothyroidism, unspecified (principal); R53.83 Other fatigue
CPT/HCPCS: 36415; 84443; 85025

== ENCOUNTER 2023-11-21 06:06 | Outpatient (REF) | payer MEDICARE, OTHER, SELFPAY ==
--- NOTE | ~2023-11-21 | FL_ITS ---
EXAMINATION: XR FLUOROSCOPY WITH IMAGES CLINICAL INFORMATION: Lumbar radiculopathy. COMPARISON: None available. TECHNIQUE: Fluoroscopy Supervised By: Dr. Spencer Mai. Fluoroscopy Time: 0.5 minutes. Cumulative Dose: 19.1 mGy. DAP: 0.0785 Gycm2. Images: 2. FINDINGS: Intraoperative fluoroscopy and spot films were performed during a procedure in the OR. Single needle seen with contrast in the epidural space overlying the spine. Level cannot be ascertained because of marked coning of the images. Please see Dr. Spencer Mai's report for complete details. FL/FL guidance in treatment room IMPRESSION: Intraoperative fluoroscopy and spot films were obtained. Please see Dr. Spencer Mai's report for complete details.
== END 2023-11-21 06:07 | disposition home or self-care (01) ==
LOC: CF 06:06
PROVIDERS: Visit Provider Internal Medicine
DX: M54.16 Radiculopathy, lumbar region (principal)
CPT/HCPCS: 62323; J3301; Q9967

== ENCOUNTER 2023-11-21 07:28 | Outpatient (AMB) | payer MEDICARE, OTHER, SELFPAY ==
--- NOTE | 2023-11-21 08:08 | MHC.OFFVIS ---
Vital Signs 11/21/23 08:36 11/21/23 08:37 Height 5 ft 4 in Weight 214 lb BMI 36.7 BP 128/84 134/88 Blood Pressure Location Lt brachial Lt brachial Position Sitting Sitting Respiration 16 18 Pulse 85 76 Pulse Source Pulse Oximeter Pulse Oximeter Pulse Oximetry (%) 97 97 Oxygen Delivery Method Room Air Room Air Comment Pre-Op Post-Op Intake Visit Reasons: L5-S1 interlaminar parasagittal BRANDON Allergies fentanyl Allergy (Severe, Verified 09/24/23 15:14) Shortness of Breath lisinopril Allergy (Severe, Verified 09/24/23 15:14) Nausea, dizziness propafenone Allergy (Severe, Verified 09/24/23 15:14) Unknown clarithromycin [From Biaxin] Allergy (Mild, Verified 09/24/23 15:14) RASH/ITCH erythromycin base [Erythromycin Base] Allergy (Mild, Verified 09/24/23 15:14) RASH/ITCH hydrocodone [From Vicodin] Allergy (Mild, Verified 09/24/23 15:14) RASH/ITCH levofloxacin [From Levaquin] Allergy (Mild, Verified 09/24/23 15:14) DELIRIUM oxycodone [From Percocet] Allergy (Mild, Verified 09/24/23 15:14) RASH/ITCH sulfamethoxazole [From Bactrim] Allergy (Mild, Verified 09/24/23 15:14) RASH/ITCH trimethoprim [From Bactrim] Allergy (Mild, Verified 09/24/23 15:14) RASH/ITCH duloxetine [From CYMBALTA] Allergy (Unknown, Verified 09/24/23 15:14) MEMORY LOSS gabapentin [From NEURONTIN] Allergy (Unknown, Verified 09/24/23 15:14) N/V tramadol [TRAMADOL] Allergy (Unknown, Verified 09/24/23 15:14) RASH lyrica Allergy (Unknown, Uncoded 09/24/23 15:14) nausea, vomiting HPI HPI L5-S1 interlaminar parasagittal BRANDON: Details: Patient presents for scheduled procedure. Denies any recent cough, cold, infection, fever or other significant changes in medical history since last office visit. [facility] Medical History Rosacea Breast cancer Vasculitis Hypothyroidism Dyslipidemia Atrial fibrillation Surgical History History of cardiac radiofrequency ablation (RFA) History of lumpectomy of right breast History of surgery on lower extremity (05/15/21) Family History Sister Colon cancer Sister Colon cancer Maternal Grandmother Lung cancer Social History Household Members: Spouse Housing: House Alcohol intake: current Alcohol intake frequency: holidays/special occasions only Alcohol type: other Patient Tobacco Use Status: Never used Tobacco e-Cigarette/Vaping Use: Never Used Second Hand Smoke Exposure: No service: No Current occupational status: retired 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 The patient was placed in the prone position. The lumbosacral area was widely prepped with chloraprep and draped in sterile fashion. Fluoroscopic guidance was used to identify the desired interlaminar space and for needle placement. Subcutaneous 0.5% lidocaine was used to anesthetize the skin overlying the target. A 20-gauge Huertas needle was advanced to the epidural space using loss of resistance to contrast technique under fluoroscopic AP and contralateral oblique views. There was no evidence of heme or CSF and no paresthesias were elicited with needle placement. Confirmation of epidural needle placement was performed with 1cc of omnipaque 180. Next 3 ml 0.5% lidocaine mixed with 80 mg triamcinolone was administered epidurally with no pain elicited on injection. The needle tract tubing was then cleared with 1 ml of 0.5% lidocaine. The needle was removed, skin cleansed and a sterile bandage was applied. The patient tolerated the procedure well and no complications were encountered. Following the procedure the patient's vital signs were stable. The patient was discharged home in good condition with post-procedural instructions. Time Out: Immediately prior to the procedure, the following was verbally confirmed that there is a signed consent form and that the correct patient, planned procedure, site and side are consistent with documentation and that necessary equipment and/or blood products are available prior to the start of the case. Complications: none EBL: <5 cc Coding 46533 - Caudal/Lumbar Epidural/Interlaminar with fluoroscopy Procedure code (CPT) selection complete Assessment & Plan Assessment & Plan (1) Lumbar radiculopathy: Code(s): M54.16 - Radiculopathy, lumbar region Category: Medical Plan Patient is status post right parasagittal interlaminar L5-S1 BRANDON. Patient tolerated procedure well and was discharged home in stable condition with discharge instructions. All questions were answered. We will follow-up via telephone or in clinic to assess response to therapy. A follow-up appointment was made during today's visit. Orders: Orders FL guidance in treatment room Today M54.16 - Radiculopathy, lumbar region Coding Level of Care Code Procedure Only Diagnoses Lumbar radiculopathy M54.16 CPT Codes Coding - Joint 11: 28902 - Caudal/Lumbar Epidural/Interlaminar with fluoroscopy ([id number])
[2023-11-21 08:36] VITALS: BP 128/84; PULSE 85; RESP 16; O2SAT 97; BMI 36.7
[2023-11-21 08:37] VITALS: BP 134/88; PULSE 76; RESP 18; O2SAT 97
--- OUTSIDE RECORDS SUMMARY | 2023-11-21 08:47 | XMS_ITS | Continuity of Care Document ---
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 Discharge Disposition: A-D/C Home Attending Physician: Rio Villeda MD Admitting Physician: Rio Villeda MD Referring Physician: Rio Villeda MD Allergies, Adverse Reactions, Alerts Substance Reaction Severity Status erythromycin Active clarithromycin Active trimethoprim Active metoprolol Active lisinopril Active Neurontin rash Active Biaxin Active Levaquin Active Bactrim rash Active Vicodin Active Percocet 7.5/325 rash Active Cymbalta rash Active Lyrica rash Active traMADol Active fentaNYL Active Immunizations Given and Recorded Vaccine Date Status Refusal Reason pneumococcal 23-valent vaccine 1 02/11/10 Given 1Early/Late Reason: Nursing Judgment Medications Meri By Mouth, 0 Refills, Maintenance, 01/27/21 7:11:00 EDT, Partial fill upon patient request if the prescription is for a schedule II opioid drug. Start Date: 01/27/21 Status: Ordered aspirin 81 mg oral tablet, chewable 81 mg, 1, tablet, By Mouth, Daily, # 30 tablet, Refills 0, Maintenance, 01/27/21 7:12:00 EDT, Partial fill upon patient request if the prescription is for a schedule II opioid drug. Start Date: 01/27/21 Status: Ordered Calcium And Vitamin D Combination By Mouth, Daily, 0 Refills, Maintenance Start Date: 02/01/10 Status: Ordered clotrimazole 1% topical cream 1 application, Topically, 2 times a day, # 12 Gm, 0 Refills, Maintenance, 01/27/21 8:14:00 EDT, Cream, Partial fill upon patient request if the prescription is for a schedule II opioid drug. Start Date: 01/27/21 Status: Ordered esomeprazole 20 mg intravenous injection 1 each = 20 mg, IV Infusion, Daily, 0 Refills, Maintenance, 08/30/16 10:18:03 Start Date: 08/30/16 Status: Ordered Lasix 20 mg oral tablet 1 tablet = 20 mg, By Mouth, Daily, 0 Refills, Maintenance Start Date: 02/01/10 Status: Ordered latanoprost 0.005% ophthalmic solution 1 drops, Eyes, Both, 2 times a day, 0 Refills, Maintenance, 01/27/21 8:13:00 EDT, Partial fill uponpatient request if the prescription is for a schedule II opioid drug. Start Date: 01/27/21 Status: Ordered levothyroxine 0.112 mg oral tablet 1 tablet = 112 mcg, By Mouth, Daily, # 30 tablet, 0 Refills, Maintenance, 01/27/21 8:16:00 EDT, Tablet, Partial fill upon patient request if the prescription is for a schedule II opioid drug. Start Date: 01/27/21 Status: Ordered Metrocream Topically, 2 times a day, 0 Refills, Maintenance Start Date: 02/01/10 Status: Ordered potassium chloride 10 mEq oral tablet, extended release By Mouth, 2 times a day, 0 Refills, Maintenance, 09/17/13 9:35:51, ER Tablet Start Date: 09/17/13 Status: Ordered propafenone 150 mg oral tablet By Mouth, Every 8 hours, 0 Refills, Maintenance, 09/17/13 9:35:54, Tablet Start Date: 09/17/13 Status: Ordered Restasis MultiDose 0.05% ophthalmic emulsion 2 drops, Eyes, Both, Every 12 hours, 0 Refills, Maintenance, 01/27/21 7:09:00 EDT, Partial fill upon patient request if the prescription is for a schedule II opioid drug. Start Date: 01/27/21 Status: Ordered simvastatin 40 mg oral tablet By Mouth, Daily at bedtime, 0 Refills, Maintenance, 09/17/13 9:36:03, Tablet Start Date: 09/17/13 Status: Ordered tiZANidine 2 mg oral capsule 1 capsule = 2 mg, By Mouth, 3 times a day, PRN as needed for muscle spasm, # 90 capsule, 0 Refills,Maintenance, 01/27/21 8:11:00 EDT, Capsule, Partial fill upon patient request if the prescription is for a schedule II opioid drug. Start Date: 01/27/21 Stop Date: 02/26/21 Status: Ordered Tylenol Extra Strength = 1,000 mg, By Mouth, Every 6 hours, PRN as needed for pain, 0 Refills, Maintenance, 04/20/14 10:16:00 Start Date: 04/20/14 Status: Ordered warfarin 1 mg oral tablet See Instructions, 3-4 tablet By Mouth Daily depending on INR, 0 Refills, Maintenance, 04/20/14 10:14:34, Tablet Start Date: 04/20/14 Status: Ordered Vital Signs Most recent to oldest [Reference Range]: 1 2 3 Height 160 cm (01/27/21 7:21 AM) 160 cm (01/27/21 6:26 AM) Weight 106.1 kg (01/27/21 7:21 AM) 106.1 kg (01/27/21 6:26 AM) Oxygen Saturation [94-100 %] 99 % (01/27/21 1:30 PM) 98 % (01/27/21 1:00 PM) 98 % (01/27/21 12:50 PM) Pulse Rate [55-90 bpm] 88 bpm (01/27/21 6:26 AM) Body Mass Index [18.5-24.99] 41.45 *>HHI* (01/27/21 6:26 AM) Blood Pressure [90-138/55-84 mm Hg] 163/66mm Hg *H* (01/27/21 1:30 PM) 163/66mm Hg *H* (01/27/21 1:00 PM) 171/54mm Hg *H* (01/27/21 12:50 PM) Respiratory Rate [16-30 br/min] 17 br/min (01/27/21 1:30 PM) 16 br/min (01/27/21 1:00 PM) 25 br/min (01/27/21 12:50 PM) Temperature [96.8-100.4 DegF] 98.2 DegF (01/27/21 6:26 AM) Mode of Delivery (Oxygen) Room air (01/27/21 12:50 PM) Room air (01/27/21 12:00 PM) Room air (01/27/21 11:30 AM) Blood pressure sites Arm, left (01/27/21 6:26 AM) Temperature Route Temporal (01/27/21 6:26 AM) Dry Weight 106.1 kg (01/27/21 7:21 AM) 106.1 kg (01/27/21 6:26 AM) Social History Social History Type Response Smoking Status Never smoker; Tobacc o user in household: No entered on: 04/19/14 Sex
--- OUTSIDE RECORDS SUMMARY | 2023-11-21 08:47 | XMS_ITS | Continuity of Care Document ---
Author Organization [facility] Address [address] [place] [id number]- Care Team Providers Care Reconciliation Manager Name Role Phone Herson Wallace MD Primary Care Physician [phone] Encounter [facility] Date(s): 01/05/21 - 02/04/21 [facility] [address] [place] [id number]- Allergies, Adverse Reactions, Alerts Substance Reaction Severity [...] 10:14:34, Tablet Start Date: 04/20/14 Status: Ordered Social History Social History Type Response Smoking Status Never smoker; Tobacc o user in household: No entered on: 04/19/14 Sex
--- OUTSIDE RECORDS SUMMARY | 2023-11-21 08:47 | XMS_ITS | Continuity of Care Document ---
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 [place] - 08/04/22 [facility] [address] [place] [address]- Attending Physician: David Mai Admitting Physician: David Mai Referring Physician: AdmtrDavid Allergies, Adverse Reactions, Alerts Substance Reaction Severity Status erythromycin Active clarithromycin Active Bactrim rash Active fentaNYL Active traMADol Active trimethoprim Active metoprolol Active lisinopril Active Neurontin rash Active Cymbalta rash Active Biaxin Active Levaquin Active Vicodin Active Tikosyn Active Percocet 7.5/325 rash Active Lyrica rash Active Immunizations Given and Recorded Vaccine Date Status Refusal Reason pneumococcal 23-valent vaccine 1 02/11/10 Given 1Early/Late Reason: Nursing Judgment Medications Meri = 180 mg, By Mouth, Daily, 0 Refills, Maintenance, 01/27/21 7:11:00 EDT, Partial fill upon patient request if the prescription is for a schedule II opioid drug. Start Date: 01/27/21 Status: Ordered Amoxicillin By Mouth, Maintenance, Prior to Dental, 07/05/22 16:03:00 EST Start Date: 07/05/22 Status: Ordered aspirin 81 mg oral tablet, chewable 81 mg, 1, tablet, By Mouth, Daily, # 30 tablet, Refills 0, Maintenance, 01/27/21 7:12:00 EDT, Partial fill upon patient request if the prescription is for a schedule II opioid drug. Start Date: 01/27/21 Status: Ordered atorvastatin 20 mg oral tablet 1 tablet = 20 mg, By Mouth, Daily, 0 Refills, Maintenance, 07/05/22 16:03:00 EST, Partial fill uponpatient request if the prescription is for a schedule II opioid drug. Start Date: 07/05/22 Status: Ordered Calcium And Vitamin D Combination By Mouth, Daily, 0 Refills, Maintenance Start Date: 02/01/10 Status: Ordered clotrimazole 1% topical cream 1 application, Topically, 2 times a day, # 12 Gm, 0 Refills, Maintenance, 01/27/21 8:14:00 EDT, Cream, Partial fill upon patient request if the prescription is for a schedule II opioid drug. Start Date: 01/27/21 Status: Ordered Lasix 20 mg oral tablet [...] opioid drug. Start Date: 01/27/21 Status: Ordered metoprolol 25 mg oral tablet 25 mg, 1, tablet, By Mouth, Daily, Refills 0, Maintenance, 07/05/22 16:04:00 EST, Partial fill uponpatient request if the prescription is for a schedule II opioid drug. Start Date: 07/05/22 Status: Ordered Metrocream Topically, 2 times a day, 0 Refills, Maintenance Start Date: 02/01/10 Status: Ordered Omeprazole = 20 mg, By Mouth, Daily, 0 Refills, Maintenance, 07/05/22 16:05:00 EST, Partial fill upon patient request if the prescription is for a schedule II opioid drug. Start Date: 07/05/22 Status: Ordered potassium chloride 10 mEq oral tablet, extended release By Mouth, 2 times a day, 0 Refills, Maintenance, 09/17/13 9:35:51, ER Tablet Start Date: 09/17/13 Status: Ordered Restasis MultiDose 0.05% ophthalmic emulsion 2 drops, Eyes, Both, Every 12 hours, 0 Refills, Maintenance, 01/27/21 7:09:00 EDT, Partial fill upon patient request if the prescription is for a schedule II opioid drug. Start Date: 01/27/21 Status: Ordered topiramate 25 mg oral capsule 1 capsule = 25 mg, By Mouth, Daily, 0 Refills, Maintenance, 07/05/22 16:05:00 EST, Partial fill upon patient request if the prescription is for a schedule II opioid drug. Start Date: 07/05/22 Status: Ordered Tylenol Extra Strength = 1,000 mg, By Mouth, Every 6 hours, PRN as needed for pain, 0 Refills, Maintenance, 04/20/14 10:16:00 Start Date: 04/20/14 Status: Ordered warfarin 1 mg oral tablet See Instructions, 3-4 tablet By Mouth Daily depending on INR, 0 Refills, Maintenance, 04/20/14 10:14:34, Tablet Start Date: 04/20/14 Status: Ordered Problem List Condition Confirmation Course Effective Dates Status Health St atus Informant Obese class II Confirmed Active Social History Social History Type Response Smoking Status Never smoker; Tobacc o user in household: No entered on: 04/19/14 Sex Note * Event Display: Cardiology Office Note, Non-BH Authored Date: * Event Display: Cardiology Office Note, Non-BH Authored Date: * Event Display: Cardiology Office Note, Non-BH Authored Date: * Event Display: Non BH Lab Results Authored Date: * Event Display: Non BH Cardiovascular Results Authored Date: * Event Display: Non BH Cardiovascular Results Authored Date: * Event Display: Non BH Cardiovascular Results Authored Date: Patient Care team information Care Team Personnel Name: Naa Bernal RN Position: [facility] RN Member Role: Primary Care Nurse Name: Herson Wallace MD Position: Reference Physician Member Role: PCP Address: Address: [address] [place] [address] Name: Temi Marks RN Position: [facility] RN Member Role: Primary Care Nurse Care Team Related Persons Name: CHARLOTTE VARNER Address: home [address] [place] [address] Name: KAIN OLSEN Address: [place] [address] [place] [address]
--- OUTSIDE RECORDS SUMMARY | 2023-11-21 08:47 | XMS_ITS | Continuity of Care Document ---
Author Organization [facility] ter Address [address] [place] [address]- Care Team Providers Care Twisting Department End Finder Name Role Phone Madison GILMORE, Herson Soto Primary Care Physician Encounter [facility] [place] Date(s): 12/08/20 - 02/02/[address] [address]- Attending Physician: Domenico Artis MD Referring Physician: Domenico Artis MD Allergies, Adverse Reactions, Alerts Substance Reaction Severity Status erythromycin Active clarithromycin Active trimethoprim Active metoprolol Active lisinopril Active Neurontin rash Active Bactrim rash Active Cymbalta rash Active traMADol Active fentaNYL Active Lyrica rash Active Biaxin Active Levaquin Active Vicodin Active Percocet 7.5/325 rash Active Immunizations Given and Recorded Vaccine [...]
--- OUTSIDE RECORDS SUMMARY | 2023-11-21 08:47 | XMS_ITS | Continuity of Care Document ---
Author Organization [facility] ter Address [address] [place] [address]- Care Team Providers Care Instrument Lens Grinder Apprentice Name Role Phone Herson Wallace MD Primary Care Physician [place] [facility] [place] 02/05/[address] [address]- Attending Physician: Domenico Artis MD Admitting Physician: Domenico Artis MD Referring Physician: Domenico [...]
--- OUTSIDE RECORDS SUMMARY | 2023-11-21 08:47 | XMS_ITS | Continuity of Care Document ---
Author Organization [facility] Address [address] [place] [address] ve [address] [place] [address]- Care Team Providers Care Scrub Nurse Name Role Phone Herson Wallace MD Primary Care Physician En[place] [facility] [place] Date(s): 03/23/22 - 04/22/22 [facility] [address] [place], [place] [address] Allergies, Adverse Reactions, Alerts Substance Reaction Severity Status erythromycin Active clarithromycin Active trimethoprim Active lisinopril Active Bactrim rash Active Lyrica rash Active fentaNYL Active metoprolol Active Neurontin rash Active Cymbalta rash Active Biaxin Active Levaquin Active Vicodin Active Percocet 7.5/325 rash Active traMADol Active Immunizations Given and Recorded Vaccine Date [...] in household: No entered on: 04/19/14 Sex Patient Care team information Personnel Name: Madison GILMORE, Herson Soto Address: Address: [address] [place] [address]
--- OUTSIDE RECORDS SUMMARY | 2023-11-21 08:48 | XMS_ITS | Continuity of Care Document ---
Author Organization [facility] ter Address [address] [place] [address]- Care Team Providers Care Subcontracts Manager Name Role Phone Herson Wallace MD Primary Care Physician [phone] [place] [facility] [place] - 02/05/[address] [address] Attending Physician: Admtr, Ar8 Admitting Physician: Admtr, Ar8 Referring Physician: Admtr, Ar8 Allergies, Adverse Reactions, Alerts Substance Reaction Severity [...]
--- OUTSIDE RECORDS SUMMARY | 2023-11-21 08:48 | XMS_ITS | Continuity of Care Document ---
Author Organization [facility] Address [address] [place] [address]- Care Team Providers Care Tromper Name Role Phone Herson Wallace MD Primary Care Physician [phone] Encounter [facility] [place] Date(s): 01/05/21 - 02/04/21 [facility] [address] [place] [address]- Attending Physician: Admtr, Ed8 Admitting Physician: Admtr, Ed8 Referring Physician: Admtr, Ar8 Allergies, Adverse Reactions, [...]
--- OUTSIDE RECORDS SUMMARY | 2023-11-21 08:48 | XMS_ITS | Continuity of Care Document ---
Author Organization [facility] Address [address] [place] [address]- Care Team Providers Care Relief Pilot Name Role Phone Herson Wallace MD Primary Care Physician En[place] [facility] [place](s[place] 08/21/23 - 09/20/23 [facility] [address] [place] [address]- Attending Physician: David Mai Admitting Physician: David Mai Referring Physician: AdmtrDavid Allergies, Adverse Reactions, Alerts Substance Reaction Severity Status erythromycin Active clarithromycin Active trimethoprim Active metoprolol Active lisinopril Active Neurontin rash Active Biaxin Active Levaquin Active Bactrim rash Active Vicodin Active Tikosyn Active Percocet 7.5/325 rash Active Cymbalta rash [...] in household: No entered on: 04/19/14 Sex Cardiology * Event Display: Cardiology Office Note, Non-BH Authored Date: * Event Display: Cardiology Office Note, Non-BH Authored Date: * Event Display: Cardiology Office Note, Non-BH Authored Date: * Event Display: Non Cardiovascular Results Authored Date: * Event Display: Non Cardiovascular Results Authored Date: * Event Display: Non Cardiovascular Results Authored Date: Laboratory * Event Display: Non Lab Results Authored Date: Patient Care team information Care Team Personnel Name: Naa Bernal RN Position: [facility]ROED[facility] RN Member Role: Primary Care Nurse Name: Herson Wallace MD Position: Reference Physician Member Role: PCP Address: Address: [address] [place] [address] Name: Temi Marks RN Position: [facility] RN Member Role: Primary Care Nurse Care Team Related Persons Name: CHARLOTTE VARNER Address: home [address] [place] [address] Name: KAIN OLSEN Address: [place] [address] [place] [address]
--- OUTSIDE RECORDS SUMMARY | 2023-11-21 08:48 | XMS_ITS | Continuity of Care Document ---
Author Organization [facility] Address [address] [place] [phone]- Care Team Providers Care Satellite Tv Technician Name Role Phone Madison GILMORE, Herson Soto Primary Care Physician [place] [facility] [place] 03[place]17/22 [facility] [address] [place] [address] [place] Allergies, Adverse Reactions, Alerts Substance Reaction Severity [...] in household: No entered on: 04/19/14 Sex Care Team Personnel Name: Madison GILMORE, Herson Soto Address: [address] [place] [id number]
--- OUTSIDE RECORDS SUMMARY | 2023-11-21 08:48 | XMS_ITS | Continuity of Care Document ---
Author Organization [facility] ter Address [address] [place] [address]- Care Team Providers Care Monument Letterer Name Role Phone Madison GILMORE, Herson Soto Primary Care Physician Encounter [facility] [place] Date(s): 08/12/19 - 08/12/[address] [address]- [place] Allergies, Adverse Reactions, Alerts Substance Reaction Severity Status erythromycin Active Neurontin rash Active Biaxin Active Levaquin Active Bactrim rash Active Vicodin Active Percocet 7.5/325 rash Active Cymbalta rash Active Lyrica rash Active traMADol Active Immunizations Given and Recorded Vaccine Date Status Refusal Reason pneumococcal 23-valent vaccine 1 02/11/10 Given 1Early/Late Reason: Nursing Judgment Medications Meri-D By Mouth, Daily, 0 Refills, Maintenance Start Date: 02/01/10 Status: Ordered Calcium And Vitamin D Combination By Mouth, Daily, 0 Refills, Maintenance Start Date: 02/01/10 Status: Ordered docusate sodium 100 mg oral capsule 1 capsule = 100 mg, By Mouth, 2 times a day, 0 Refills, Maintenance, 05/06/14 8:05:18, Capsule Start Date: 05/06/14 Status: Ordered esomeprazole 20 mg intravenous injection 1 each = 20 mg, IV Infusion, Daily, 0 Refills, Maintenance, 08/30/16 10:18:03 Start Date: 08/30/16 Status: Ordered Flonase 1 sprays, Daily, 0 Refills, Maintenance, 08/30/16 10:18:38 Start Date: 08/30/16 Status: Ordered hydromorphone 2 mg oral tablet By Mouth, Every 3 hours, PRN Pain , Mild, 0 Refills, Maintenance, 09/17/13 9:35:05, Tablet Start Date: 09/17/13 Status: Ordered hydromorphone 4 mg oral tablet = 4 mg, By Mouth, Every 4 hours, PRN Pain , Moderate, 0 Refills, Maintenance, 05/06/14 8:04:59, Tablet Start Date: 05/06/14 Status: Ordered lansoprazole 30 mg oral enteric coated capsule 1 capsule = 30 mg, By Mouth, Daily, # 30 capsule, 0 Refills, Maintenance, 04/20/14 10:14:26, EC Capsule Start Date: 04/20/14 Status: Ordered Lasix 20 mg oral tablet 1 tablet = 20 mg, By Mouth, Daily, 0 Refills, Maintenance Start Date: 02/01/10 Status: Ordered Metrocream Topically, 2 times a day, 0 Refills, Maintenance Start Date: 02/01/10 Status: Ordered MiraLax Powder 1 pack/packet = 17 Gm, By Mouth, Daily, 0 Refills, Maintenance, 05/06/14 8:05:21, Powder Start Date: 05/06/14 Status: Ordered potassium chloride 10 mEq oral tablet, extended release By Mouth, 2 times a day, 0 Refills, Maintenance, 09/17/13 9:35:51, ER Tablet Start Date: 09/17/13 Status: Ordered propafenone 150 mg oral tablet By Mouth, Every 8 hours, 0 Refills, Maintenance, 09/17/13 9:35:54, Tablet Start Date: 09/17/13 Status: Ordered Restasis 0.05% ophthalmic emulsion 1 drops, Eyes, Both, Every 12 hours, 0 Refills, Maintenance, 09/14/13 2:05:54 Start Date: 09/14/13 Status: Ordered rizatriptan 10 mg oral tablet 1 tablet = 10 mg, By Mouth, Daily, 0 Refills, Maintenance, 08/30/16 10:18:49 Start Date: 08/30/16 Status: Ordered senna 187 mg oral tablet 1 tablet = 8.6 mg, By Mouth, Daily at bedtime, 0 Refills, Maintenance, 05/06/14 8:05:24, Tablet Start Date: 05/06/14 Status: Ordered simvastatin 40 mg oral tablet By Mouth, Daily at bedtime, 0 Refills, Maintenance, 09/17/13 9:36:03, Tablet Start Date: 09/17/13 Status: Ordered Synthroid 0.075 mg oral tablet 1 tablet = 0.075 mg, By Mouth, Daily, 0 Refills, Maintenance Start Date: 02/01/10 Status: Ordered Tylenol Extra Strength By Mouth, Every 6 hours, 0 Refills, Maintenance, 08/30/16 10:18:28 Start Date: 08/30/16 Status: Ordered Tylenol Extra Strength = 1,000 [...]
--- OUTSIDE RECORDS SUMMARY | 2023-11-21 08:48 | XMS_ITS | Continuity of Care Document ---
Author Organization [facility] ter Address [address] [place] [address]- Care Team Providers Care Cardiology Clinical Nurse Specialist Name Role Phone Madison GILMORE, Herson Soto Primary Care Physician Encounter [facility] [place] Date(s): 12/31/20 - 02/05/[address] [address]- Attending Physician: Bertha Rodriguez MD Admitting Physician: Bertha Rodriguez MD Referring Physician: Domenico Artis MD Allergies, [...]
--- OUTSIDE RECORDS SUMMARY | 2023-11-21 08:48 | XMS_ITS | Continuity of Care Document ---
Author Organization [facility] Address [address] [place] [address]- Care Team Providers Care Computational Sciences Professor Name Role Phone Herson Wallace MD Primary Care Physician [phone] Encounter [facility] [place] [facility] [place] [id number] Date(s): 07/02/23 - 08/01/23 [facility] [address] [place] [address] [place] Allergies, Adverse Reactions, Alerts Substance Reaction Severity Status erythromycin Active clarithromycin Active Bactrim rash Active fentaNYL Active trimethoprim Active metoprolol Active lisinopril Active Neurontin rash Active Cymbalta rash Active Biaxin Active Levaquin Active Vicodin Active Tikosyn Active Percocet 7.5/325 rash Active Lyrica rash Active traMADol Active [...] on: 04/19/14 Sex Patient Care team information Care Team Personnel Name: Naa Bernal RN Position: [facility] RN Member Role: Primary Care Nurse Name: Madison GILMORE, Herson Soto Position: Reference Physician Member Role: PCP Address: Address: [address] [place] [address]- Name: Temi Marks RN Position: AR[facility]ELLA RN Member Role: Primary Care Nurse Care Team Related Persons Name: CHARLOTTE VARNER Address: [address] [place] [address] Name: KAIN OLSEN Address: home [address] [place] [address]
== END 2023-11-21 08:39 | disposition home or self-care (01) ==
LOC: HO.PMCPRC 07:29
PROVIDERS: PCP Internal Medicine; Visit Provider Internal Medicine
DX: M54.16 Radiculopathy, lumbar region (principal)
CPT/HCPCS: 62323

== ENCOUNTER 2024-07-30 10:40 | Outpatient (REF) | payer MEDICARE, SELFPAY | END 2024-07-30 10:41 | disposition home or self-care (01) | LOC: HO.MAMMO 10:40 | PROVIDERS: PCP Nurse Practitioner Gerontology; Visit Provider Nurse Practitioner Gerontology | DX: Z12.31 Encounter for screening mammogram for malignant neoplasm of breast (principal) | CPT/HCPCS: 77063; 77067 ==

== ENCOUNTER → 2024-07-30 11:15 | Outpatient (BNV) | payer MEDICARE, SELFPAY | PROVIDERS: PCP Nurse Practitioner Gerontology; Visit Provider Internal Medicine | DX: Z12.31 Encounter for screening mammogram for malignant neoplasm of breast (principal) | CPT/HCPCS: 77063; 77067 ==